=== PATIENT | female | born 1965 | race Asian ===

== ENCOUNTER 2019-03-25 20:09 | Emergency (ER) | payer OTHER ==
[~2019-03-25] VITALS: Ht 165.1 cm; Wt 53.5 kg
[2019-03-25 20:17] VITALS: Ht 165.1 cm; Wt 53.5 kg
[2019-03-25 22:25] VITALS: BP 179/81
== END 2019-03-25 22:25 | disposition home or self-care (01) ==
LOC: ED 20:09
DX: M65.4 Radial styloid tenosynovitis [de Quervain] (principal)